=== PATIENT | female | born 1975 | race Caucasian/White ===

== ENCOUNTER 2017-12-14 08:56 | Outpatient (CLI) | payer OTHER | END 2017-12-14 09:01 | disposition home or self-care (01) | LOC: MAMO-SONO 08:56 | DX: Z12.31 Encounter for screening mammogram for malignant neoplasm of breast (principal); R92.8 Other abnormal and inconclusive findings on diagnostic imaging of breast ==

== ENCOUNTER → 2017-12-14 09:43 | Outpatient (CLI) | payer OTHER | END | disposition home or self-care (01) | LOC: MAMO-SONO 08:15 → LAB 08:15 | DX: R73.01 Impaired fasting glucose (principal); E55.9 Vitamin D deficiency, unspecified; R00.2 Palpitations ==

== ENCOUNTER 2017-12-23 14:02 | Outpatient (CLI) | payer OTHER | END 2017-12-23 14:05 | disposition home or self-care (01) | LOC: SONOGRAMA 14:02 | DX: N60.11 Diffuse cystic mastopathy of right breast (principal) ==

== ENCOUNTER 2018-07-19 09:59 | Outpatient (CLI) | payer OTHER | END 2018-07-19 10:09 | disposition home or self-care (01) | LOC: RAD 09:59 | DX: S90.922D Unspecified superficial injury of left foot, subsequent encounter (principal) ==

== ENCOUNTER 2018-11-30 09:23 | Outpatient (CLI) | payer OTHER | END 2018-11-30 09:33 | disposition home or self-care (01) | LOC: NUCLEAR 09:23 | DX: I87.2 Venous insufficiency (chronic) (peripheral) (principal); G54.0 Brachial plexus disorders; R20.2 Paresthesia of skin ==

== ENCOUNTER → 2018-12-01 | Outpatient (CLI) | payer OTHER | END | disposition home or self-care (01) | LOC: NUCLEAR 09:00 | DX: G54.0 Brachial plexus disorders (principal); R20.2 Paresthesia of skin; I73.9 Peripheral vascular disease, unspecified ==

== ENCOUNTER → 2018-12-01 | Outpatient (CLI) | payer OTHER | END | disposition home or self-care (01) | LOC: RAD 11:13 | DX: R07.89 Other chest pain (principal); Z01.811 Encounter for preprocedural respiratory examination ==

== ENCOUNTER 2022-12-01 12:52 | Outpatient (CLI) | payer OTHER | END 2022-12-01 13:23 | disposition home or self-care (01) | LOC: NUCLEAR 12:52 | PROVIDERS: ATTEND Obstetrics & Gynecology | DX: M81.0 Age-related osteoporosis without current pathological fracture (principal) ==

== ENCOUNTER 2023-11-05 11:06 | Outpatient (CLI) | payer OTHER | END 2023-11-05 11:18 | disposition home or self-care (01) | LOC: RAD 11:06 | PROVIDERS: ATTEND Physical Medicine & Rehabilitation | DX: M25.561 Pain in right knee (principal) ==

== ENCOUNTER 2024-11-10 14:29 | Outpatient (CLI) | payer OTHER | END 2024-11-10 14:35 | disposition home or self-care (01) | LOC: RAD 14:29 | DX: S63.001A Unspecified subluxation of right wrist and hand, initial encounter (principal); S63.004A Unspecified dislocation of right wrist and hand, initial encounter ==